=== PATIENT | male | born 1975 | race Hispanic/Latino ===

== ENCOUNTER 2022-08-22 13:52 | Emergency (ER) | payer MEDICAID, SELFPAY ==
--- NOTE | ~2022-08-22 | XR_ITS ---
EXAMINATION: XR chest 2V DATE: 08/22/2022 15:46 INDICATION: Weakness TECHNIQUE: Frontal and lateral views of the chest are obtained COMPARISON: None available FINDINGS: A large bore right internal jugular catheter ends with its tip in the proximal right atrium . There is a mild diffuse interstitial pattern. The cardiomediastinal silhouette is normal. There are trace pleural effusions. No pneumothorax is identified. There is mild thoracic spondylosis. IMPRESSION: 1. Mild pulmonary edema. Reviewed, dictated and finalized at location B. HIDE TRIMMER IMPRESSION: 1. Mild pulmonary edema.
--- NOTE | 2022-08-22 14:20 | PCCCNOTE ---
Patient came to front entrance of hospital and asked a volunteer for help. I spoke with pt. using the [employer] Log[employer] Research Engineer, Alberto #[id number]. Pt. reports that he is diabetic. He has been going to dialysis for about 4 months. He reports that he has not been feeling well for about 2 weeks and has had vomiting, diarrhea and weakness. At that point he said he was needing to see a Dr. and he was taken to the ED to register. He said he was last at dialysis this morning. He rode the bus to the hospital today. He has a med list from [facility] location. I called [facility] and requested they send a current med list and demographic sheet to the ED fax [phone]. I also confirmed that pt. had full dialysis treatment this morning and has not missed any dialysis treatments. He goes to dialysis on Saturday, Saturday, Saturday at 0545.
[2022-08-22 15:23] VITALS: BP 161/87; PULSE 70; RESP 20; TEMP 36.8; O2SAT 97
--- NOTE | 2022-08-22 15:30 | ECG_ITS ---
Measurements Intervals Carter Rate: 69 P: 62 NJ: 162 QRS: 38 QRSD: 75 T: 124 QT: 423 QTc: 456 Interpretive Statements SINUS RHYTHM POSSIBLE LEFT ATRIAL ENLARGEMENT [-0.1mV P WAVE IN V1/V2] NONSPECIFIC ST AND T-WAVE ABNORMALITY NO PREVIOUS ECG AVAILABLE FOR COMPARISON Electronically Signed On 08-22-2022 15:54:16 TUBULAR PRODUCTS FABRICATOR by Kenia Davalos M.D.
[2022-08-22 15:50] LABS: Basophils Percent Auto 0.6 % (0.2-1.2); Eosinophils Percent Auto 0.6 % (0-4.4); Hematocrit 35.4 % (42.0-52.0); Hemoglobin 11.4 g/dL (14.0-18.0); Immature Granulocyte Absolute 0.03 K/mm3 (0.00-0.031); Immature Granulocyte Percent A 0.6 % (0-0.5); Immature Platelet Fraction Pct 6.6 % (0.9-11.2); Lymphocytes Absolute Auto 0.59 K/mm3 (0.9-3.2); Lymphocytes Percent Auto 12.8 % (18.3-44.2); Mean Corpuscular HGB Conc 32.2 g/dl (32-36); Mean Corpuscular Hemoglobin 27.5 pg (26-34); Mean Corpuscular Volume 85.3 fl (80-100); Mean Platelet Volume 10.7 fl (7.4-10.4); Monocytes Absolute Auto 0.7 K/mm3 (0.1-0.6); Monocytes Percent Auto 14.9 % (2.6-8.5); Neutrophils Absolute Auto 3.3 K/mm3 (1.3-6.7); Neutrophils Percent Auto 70.5 % (45.5-73.1); Platelet Count Result 100 k/mm3 (150-375); Red Blood Count 4.15 M/mm3 (4.6-6.20); Red Cell Distribution Width 15.2 % (11.5-14.5); White Blood Count 4.6 K/mm3 (4.5-10.0)
[2022-08-22 16:00] LABS: Alanine Aminotransferase 25 U/L (6-50); Albumin Level 3.5 g/dL (3.5-5.1); Alkaline Phosphatase 111 U/L (38-126); Anion Gap 6 mmol/L (8-16); Aspartate Amino Transferase 39 U/L (17-59); Bilirubin,Total 0.5 mg/dL (0.2-1.3); Blood Urea Nitrogen 33 mg/dL (9-20); Calcium 7.5 mg/dL (8.4-10.2); Carbon Dioxide 30 mmol/L (22-30); Chloride 96 mmol/L (98-107); Estimated CRCL calculation 12 ml/min; Estimated Glomerular Filt Rate 10; Glucose 227 mg/dL (65-110); Potassium 4.2 mmol/L (3.4-5.0); Sodium 132 mmol/L (137-145)
[2022-08-22 16:18] LABS: Add Urine Microscopic? YES; Appearance Urine Clear (Clear); Bilirubin Urine Negative (Negative); Blood Urine 1+ (Negative); Color Urine Light Yellow (Yellow); Glucose Urine UA 2+ mg/dL (Negative); Ketones Urine Negative (Negative); Leukocyte Esterase Ur Negative LEU/UL (Negative); Nitrate Urine Negative (Negative); Protein Urine 3+ mg/dL (Negative); Specific Grav Ur 1.015 (1.001-1.035); Urobilinogen Urine 0.2 mg/dL (<2.0); pH Urine 7.5 (5.0-9.0)
[2022-08-22 16:24] LABS: Influenza A QL RT-PCR Positive (Negative); Influenza B QL RT-PCR Negative (Negative); SARS-CoV-2 RNA PCR Negative
[2022-08-22 16:44] LABS: Bacteria Urine Trace /hpf; Mucus Urine Rare /lpf; RBC Urine 21-50 /hpf (0-2); Squamous Epithelial Cell Urine Rare /hpf (Few)
--- NOTE | 2022-08-22 19:30 | ED.WEAKNESS ---
HPI - Weakness General Chief complaint: Weakness Stated complaint: WEAKNESS, N/V HX ESRD,FLU S/SX Time Seen by Provider: 08/22/22 19:16 History of Present Illness HPI Narrative: 47-year-old male with history of ESRD on dialysis Saturday and Saturday presents with 3 days of nausea, vomiting, diarrhea, cough, generalized weakness. Review of Systems Review of Systems: CONST: chills HEENT: No sore throat C/V: No chest pain RESP: cough GI: Reports nausea, vomiting[, diarrhea] : No dysuria. M/S: Muscle ache. SKIN: No rash. NEURO: [No headache or focal numbness or weakness] PSYCH: [No depression] [facility] Past Medical History Medical History (Updated 08/23/22 @ 00:17 by Valencia La MD) ESRD (end stage renal disease) Exam Narrative: EXAMINATION OF ORGAN SYSTEMS/BODY AREAS: Constitutional: Vital signs per nursing GENERAL:[No acute distress, non-toxic appearing.] HEAD: Normal with no signs of head trauma. EYES: EOMI, conjunctiva normal ENT: Hearing grossly intact LUNGS: Nonlabored breathing. HEART: [Regular rate and rhythm] ABD: [Soft], [nontender to palpation] EXT: Normal range of motion SKIN: [No rashes or lesions.] NEURO: [Alert and oriented x 3. No gross focal sensory or strength deficits.] PSYCH: Normal affect Course Vital Signs Vital signs: Vital Signs Temperature 98.2 F 08/22/22 15:23 Pulse Rate 70 08/22/22 15:23 Respiratory Rate 20 08/22/22 15:23 Blood Pressure 161/87 H 08/22/22 15:23 Pulse Oximetry 97 08/22/22 15:23 Oxygen Delivery Room Air 08/22/22 15:23 Temperature 98.2 F 08/22/22 15:23 Pulse Rate 70 08/22/22 15:23 Respiratory Rate 20 08/22/22 15:23 Blood Pressure 161/87 H 08/22/22 15:23 Pulse Oximetry 97 08/22/22 15:23 Oxygen Delivery Room Air 08/22/22 15:23 MDM - Weakness MDM Narrative Medical decision making narrative: ED COURSE AND MEDICAL DECISION MAKING: This 47-year old patient presents with symptoms most suggestive of viral upper respiratory tract infection. Lungs are clear bilaterally without any respiratory distress or accessory muscle use. He was found to have flu. Vital signs are stable here, he is discharged home in stable condition with expectant management. Out of tamiflu window. Strict return precautions were provided. He will be seeing his doctor within next 2 days. Tylenol, Zofran, loperamide prescription provided for symptoms. Procedures: Pulse oximetry interpretation - not hypoxic. Review of medical records. Lab Data 08/22/22 15:38 08/22/22 15:38 Labs: Lab Results 08/22/22 08/22/22 08/22/22 Range/Units 15:38 15:38 15:38 WBC 4.6 (4.5-10.0) K/mm3 RBC 4.15 L (4.6-6.20) M/mm3 Hgb 11.4 L (14.0-18.0) g/dL Hct 35.4 L (42.0-52.0) % MCV 85.3 (80-100) fl MCH 27.5 (26-34) pg MCHC 32.2 (32-36) g/dl RDW 15.2 H (11.5-14.5) % Plt Count 100 L (150-375) k/mm3 MPV 10.7 H (7.4-10.4) fl Immature Gran % (Auto) 0.6 H (0-0.5) % Neut % (Auto) 70.5 (45.5-73.1) % Lymph % (Auto) 12.8 L (18.3-44.2) % Cavalier % (Auto) 14.9 H (2.6-8.5) % Eos % (Auto) 0.6 (0-4.4) % Baso % (Auto) 0.6 (0.2-1.2) % Lymph # (Auto) 0.59 L (0.9-3.2) K/mm3 Cavalier # (Auto) 0.7 H (0.1-0.6) K/mm3 Eos # (Auto) 0.0 (0-0.3) K/mm3 Baso # (Auto) 0.0 (0.0-0.1) K/mm3 Abs Immat Gran (auto) 0.03 (0.00-0.031) K/mm3 Absolute Neuts (auto) 3.3 (1.3-6.7) K/mm3 Absolute Nucleated RBC 0.0 (0.0-0.012) K/mm3 Nucleated RBC % 0.0 (0.0-0.2) % % Immature Plt Fraction 6.6 (0.9-11.2) % Sodium 132 L (137-145) mmol/L Potassium 4.2 (3.4-5.0) mmol/L Chloride 96 L (98-107) mmol/L Carbon Dioxide 30 (22-30) mmol/L Anion Gap 6 L (8-16) mmol/L BUN 33 H (9-20) mg/dL Creatinine 6.30 H (0.7-1.3) mg/dL Estim Creat Clear Calc 12 ml/min Estimated GFR 10 L (59 - ) Glucose 227 H (65-110) mg/dL Calcium 7.5 L (8.4-
== END 2022-08-22 19:58 | disposition home or self-care (01) ==
PROVIDERS: Emergency Medicine; Emergency Provider Emergency Medicine
DX: J10.1 Influenza due to other identified influenza virus with other respiratory manifestations (principal); Z20.822 Contact with and (suspected) exposure to COVID-19; N18.6 End stage renal disease; Z99.2 Dependence on renal dialysis
CPT/HCPCS: 36415; 71046; 80053; 81001; 85025; 85055; 87086; 87636; 93005; 99283